=== PATIENT | male | born 1965 | race Caucasian/White ===

== ENCOUNTER 2018-12-29 16:26 | Emergency (ER) | payer BC, OTHER ==
--- NOTE | 2018-12-29 17:30 | EDM.PDOC ---
ED HPI GENERAL MEDICAL PROBLEM - General Chief Complaint: Back Pain or Injury Stated Complaint: BACK PAIN POSSIBLE KIDNEY STONE? Time Seen by Provider: 12/29/18 16:44 Source of Information: Reports: Patient, RN Notes Reviewed History Limitations: Reports: No Limitations - History of Present Illness INITIAL COMMENTS - FREE TEXT/NARRATIVE: Patient is a 53-year-old male who presents to the ED today for evaluation of low back pain. The patient states that this did start Thursday. He states that he was at work, and went to the bathroom and then after he went to the bathroom he felt the sudden intense shocklike pain into his low back and lower abdomen. He denies any recent injury to this area, however he states that when he was a child he had back surgery but has not had any issues related to this as he has grown up. The patient states that there is no radiation down the legs, but does worsen with movement. The patient states that he has been taking 1000 mg of Tylenol and this is provide a little better relief but has not taken the pain away completely. The patient states that he has not had any fevers or chills, vomiting or diarrhea. He states he has had mild nausea with these spells, and has had a normal bowel movement yesterday. He notes his primary care provider to be Dr. Lares in [place]. He also cannot attest to if he is having urinary frequency, as he states he is on hydrochlorothiazide but also has been increasing his fluid intake as he thought it might be a kidney stone. Lower Back Pain Score (Numeric/FACES): 6 - Related Data Allergies Allergy/AdvReac Type Severity Reaction Status Date / Time No Known Allergies Allergy Verified 12/29/18 16:36 Home Meds: Home Meds Atenolol 25 mg PO DAILY 12/11/13 [History] hydroCHLOROthiazide [Hydrochlorothiazide] 25 mg PO DAILY 12/11/13 [History] Orphenadrine [Norflex] 100 mg PO BID PRN #20 tab 12/29/18 [Rx] Past Medical History Cardiovascular History: Reports: Hypertension Gastrointestinal History: Reports: GERD Social & Family History - Tobacco Use Smoking Status *Q: Never Smoker Second Hand Smoke Exposure: No - Caffeine Use Caffeine Use: Reports: None - Recreational Drug Use Recreational Drug Use: No ED ROS GENERAL - Review of Systems Review Of Systems: See Below Constitutional: Denies: Fever, Chills HEENT: Reports: No Symptoms Respiratory: Reports: No Symptoms Cardiovascular: Reports: No Symptoms Endocrine: Reports: No Symptoms GI/Abdominal: Reports: No Symptoms : Reports: Frequency. Denies: Dysuria Musculoskeletal: Reports: Back Pain (bilateral lower back). Denies: Leg Pain Skin: Reports: No Symptoms Neurological: Denies: Numbness, Tingling Psychiatric: Reports: No Symptoms Hematologic/Lymphatic: Reports: No Symptoms Immunologic: Reports: No Symptoms ED EXAM,LOWER BACK PAIN/INJURY - Physical Exam Exam: See Below Exam Limited By: No Limitations General Appearance: Alert, WD/WN, No Apparent Distress Eye Exam: Bilateral Eye: Normal Inspection Ears: Normal External Exam Nose: Normal Inspection Throat/Mouth: Normal Inspection, Normal Teeth, Normal Oropharynx, No Airway Compromise Head: Atraumatic, Normocephalic Neck: Normal Inspection Respiratory/Chest: No Respiratory Distress, Lungs Clear, Normal Breath Sounds, No Accessory Muscle Use, Chest Non-Tender Cardiovascular: Normal Peripheral Pulses, Regular Rate, Rhythm, No Murmur GI/Abdominal: Normal Bowel Sounds, Soft, Non-Tender, No Distention, No Mass Back Exam: Normal Inspection, Full Range of Motion Extremities: Normal Inspection, Normal Range of Motion, Non-Tender, Normal Capillary Refill Neurological: Alert, Normal Mood/Affect, Normal Dorsiflexion, Normal Plantar Flexion, Normal Gait, Normal Reflexes, No Motor/Sensory Deficits, Oriented x 3 Psychiatric: Normal Affect, Normal Mood Skin Exam: Warm, Dry, Intact, Normal Color, No Rash Course - Vital Signs Last Recorded V/S: Last Vital Signs Temp 98.4 F 12/29/18 16:37 Pulse 69 12/29/18 16:37 Resp 12 12/29/18 16:37 BP 140/97 H 12/29/18 16:37 Pulse Ox 100 12/29/18 16:37 - Orders/Labs/Meds Labs: Laboratory Tests 12/29/18 Range/Units 17:12 Urine Color Yellow (Yellow) Urine Appearance Clear (Clear) Urine pH 7.0 (5.0-8.0) Ur Specific Steedman 1.020 (1.005-1.030) Urine Protein Negative (Negative) Urine Glucose (UA) Negative (Negative) Urine Ketones Negative (Negative) Urine Occult Blood Negative (Negative) Urine Nitrite Negative (Negative) Urine Bilirubin Negative (Negative) Urine Urobilinogen 0.2 (0.2-1.0) Ur Leukocyte Esterase Negative (Negative) Urine RBC Not seen (0-5) /hpf Urine WBC Not seen (0-5) /hpf Ur Squamous Epith Cells 0-5 (0-5) /hpf Urine Bacteria Rare (FEW) /hpf Urine Mucus Few (FEW) /hpf - Re-Assessments/Exams Free Text/Narrative Re-Assessment/Exam: 12/29/18 17:32 Patient presents to the ED for the evaluation of lower back pain. I did order a UA for initial evaluation to see if he does have some blood in his urine before I order a CT for further confirmation. I'm suspicious however that his pain might be more musculoskeletal in nature versus a kidney stone. 12/29/18 18:48 The patient's UA was negative for any type of blood in his urine. This is more likely due to musculoskeletal pain in nature I will give general conservative recommendations and send the gentleman on his way. Departure - Departure Time of Disposition: 19:00 Disposition: Home, Self-Care 01 Condition: Fair Clinical Impression: Lower back pain Qualifiers: Chronicity: acute Back pain laterality: bilateral Sciatica presence: without sciatica Qualified Code(s): M54.5 - Low back pain - Discharge Information *PRESCRIPTION DRUG MONITORING PROGRAM REVIEWED*: No *COPY OF PRESCRIPTION DRUG MONITORING REPORT IN PATIENT TY: No Prescriptions: Orphenadrine [Norflex] 100 mg PO BID PRN #20 tab PRN Reason: Spasms Instructions: Acute Back Pain, Adult Referrals: Aj Lares MD [Primary Care Provider] - Forms: ED Department Discharge, ED Return to Work/School Form Additional Instructions: You have been evaluated in the ED for your back pain. Your urinalysis was not positive for blood at this time. This is unlikely that if the kidney stone. Your pain is most likely due from a musculoskeletal injury in nature. Please use ice/heat as tolerated to the affected area. You may take tylenol 500 mg or ibuprofen 600mg q6 hrs for pain relief. Please do so until you have a tolerable level of pain with activity. Do not exceed 4000mg tylenol, Do not exceed 3200mg ibuprofen in a 24 hour time period. You may take the Norflex 1 tab twice daily as needed for muscle spasms. This has been electronically sent to [facility] located near [facility]. Please return to ED if your symptoms should change or worsen.
== END 2018-12-29 19:40 | disposition home or self-care (01) ==
LOC: JD.ED 16:26
DX: M54.5 Low back pain (principal); I10 Essential (primary) hypertension
CPT/HCPCS: 81001; 99283

== ENCOUNTER 2019-01-13 04:51 | Emergency (ER) | payer BC, OTHER ==
[2019-01-13] MEDS ORDERED: Meclizine 12.5 MG Tab PO ONE (05:05)
--- NOTE | 2019-01-13 05:21 | EDM.PDOC ---
ED HPI GENERAL MEDICAL PROBLEM - General Chief Complaint: Cardiovascular Problem Stated Complaint: [facility] Time Seen by Provider: 01/13/19 04:51 - History of Present Illness INITIAL COMMENTS - FREE TEXT/NARRATIVE: 53-year-old male brought in by EMS with dizziness and elevated blood pressure. Patient awoke felt dizzy checked his blood pressure and his blood pressures were higher than normal he cannot recall how high. When EMS arrived his systolic was in the 170s the promptly came down into the 150s. Over time his dizziness did get better he did take an atenolol right after he woke up. Out of the ordinary he took NyQuil shortly before midnight. The patient has not noticed any palpitations chest discomfort reading difficulties or shortness of breath he denies any recent cough URI symptoms or fevers or chills. He normally enjoys good health does not smoke does take atenolol and hydrochlorothiazide for his blood pressure however - Related Data Allergies Allergy/AdvReac Type Severity Reaction Status Date / Time No Known Allergies Allergy Verified 01/13/19 04:54 Home Meds: Home Meds Atenolol 50 mg PO DAILY 12/11/13 [History] hydroCHLOROthiazide [Hydrochlorothiazide] 25 mg PO DAILY 12/11/13 [History] Past Medical History Cardiovascular History: Reports: Hypertension Gastrointestinal History: Reports: GERD Social & Family History - Tobacco Use Smoking Status *Q: Never Smoker - Caffeine Use Caffeine Use: Reports: None - Recreational Drug Use Recreational Drug Use: No ED ROS GENERAL - Review of Systems Review Of Systems: See Below Constitutional: Denies: Fever, Chills HEENT: Reports: No Symptoms, Contact Lenses, Dental Pain, Ear Discharge, Ear Pain Respiratory: Reports: No Symptoms, Shortness of Breath. Denies: Wheezing, Cough , Sputum Cardiovascular: Reports: No Symptoms. Denies: Palpitations, Syncope Endocrine: Reports: No Symptoms GI/Abdominal: Reports: No Symptoms : Reports: No Symptoms Neurological: Denies: Confusion, Headache, Numbness, Paresthesia, Pre-Existing Deficit, Seizure, Syncope, Tingling, Trouble Speaking, Difficulty Walking, Weakness ED EXAM, GENERAL - Physical Exam Exam: See Below Exam Limited By: No Limitations General Appearance: Alert, No Apparent Distress Eye Exam: Bilateral Eye: EOMI, Normal Inspection, PERRL Ears: Normal External Exam, Normal Canal, Hearing Grossly Normal, Normal TMs Nose: Normal Inspection, Normal Mucosa, No Blood Throat/Mouth: Normal Inspection, Normal Lips, Normal Teeth, Normal Gums, Normal Oropharynx, Normal Voice, No Airway Compromise Head: Atraumatic, Normocephalic Neck: Normal Inspection, Supple, Non-Tender, Full Range of Motion. No: Lymphadenopathy (L), Lymphadenopathy (R) Respiratory/Chest: No Respiratory Distress, Lungs Clear, Normal Breath Sounds, No Accessory Muscle Use, Chest Non-Tender Cardiovascular: Normal Peripheral Pulses, Regular Rate, Rhythm, No Edema, No Gallop, No JVD, No Murmur, No Rub GI/Abdominal: Normal Bowel Sounds, Soft, Non-Tender Back Exam: Normal Inspection. No: CVA Tenderness (L), CVA Tenderness (R) Extremities: Normal Inspection, Normal Range of Motion, Non-Tender, No Pedal Edema Neurological: Alert, Oriented, Normal Cognition, Other (Cranial nerves II through XII grossly intact all muscle groups in upper and lower extremities are equal and appropriate bilaterally. Cerebellar testing is entirely normal deep tendon reflexes are equal at the brachial radialis and patella tendons bilaterally. Attempted Hallpike's maneuver with the patient had a hard time doing this however dizziness was not made worse by him looking to the right or left the only consistency is the dizziness perhaps a little worse with him lying backwards.) Course - Vital Signs Last Recorded V/S: Last Vital Signs Temp 36.1 C 01/13/19 04:55 Pulse 77 01/13/19 04:55 Resp 20 01/13/19 04:55 BP 144/100 H 01/13/19 04:55 Pulse Ox 100 01/13/19 04:55 - Orders/Labs/Meds Meds: Medications Discontinued Medications Generic Name Dose Route Start Last Admin Trade Name Freq PRN Reason Stop Dose Admin Meclizine HCl 12.5 mg 01/13/19 05:05 01/13/19 05:09 Antivert PO 01/13/19 05:06 12.5 mg ONETIME ONE Administration - Re-Assessments/Exams Free Text/Narrative Re-Assessment/Exam: 01/13/19 05:38 Patient was pretty well symptom-free by the time he arrived here his systolics ranging around 155 he took an atenolol about an hour before getting here. He doesn't remember how high his blood pressures were at home EMS measured his systolic 155 and one was a little higher as the first one. Patient was given meclizine 12.5 mg after His exam and his symptoms did resolve. Discussed further testing with the patient such as images and I did recommend an MRI as an outpatient. Laboratory work would be of minimal if any benefit he would like to hold off on this CT would be of minimal benefit and he would like to hold off on this he does agree to follow-up with reliability technologist if his symptoms persist. Departure - Departure Time of Disposition: 05:35 Disposition: Home, Self-Care 01 Clinical Impression: Dizziness Instructions: Dizziness, [id number] Referrals: PCP,None [Primary Care Provider] - Forms: ED Department Discharge Additional Instructions: Follow-up with your doctor this next week as scheduled. Return to the emergency room with any questions problems worsening symptoms. At some point you should get an audiology evaluation if the symptoms persist.
== END 2019-01-13 05:45 | disposition home or self-care (01) ==
LOC: JD.ED 04:51
DX: R42 Dizziness and giddiness (principal); I10 Essential (primary) hypertension; K21.9 Gastro-esophageal reflux disease without esophagitis; Z79.899 Other long term (current) drug therapy
CPT/HCPCS: 99284; A9270; 99283